=== PATIENT | female | born 1975 ===

== ENCOUNTER 2024-02-01 07:44 | Day surgery (SDC) | payer BC ==
[~2024-02-01] VITALS: Ht 170.2 cm; Wt 95.5 kg
[~2024-02-01 07:44] MED LIST: Lactated Ringer's 1,000 ML IV ONE; OZEMPIC1 MG/0.72 SC; propofoL 50 ML IV ONE
[2024-02-01] MEDS ORDERED: Lactated Ringer's 1,000 ML IV ONE (07:56)
[2024-02-01] MEDS ORDERED: MAGNESIUM OXID500 MG (08:13)
[2024-02-01 09:50] VITALS: BP 101/74
== END 2024-02-01 09:56 | disposition home or self-care (01) ==
LOC: ORSCSDS 07:44
PROVIDERS: Internal Medicine Gastroenterology
PROC: 0DBM8ZX Excision of Descending Colon, Via Natural or Artificial Opening Endoscopic, Diagnostic (ICD-10-PCS; principal; 2024-02-01 09:00)
PROC: 0DBK8ZX Excision of Ascending Colon, Via Natural or Artificial Opening Endoscopic, Diagnostic (ICD-10-PCS; principal; 2024-02-01 09:00)
DX: Z12.11 Encounter for screening for malignant neoplasm of colon (principal); K63.5 Polyp of colon; Z98.84 Bariatric surgery status; G47.33 Obstructive sleep apnea (adult) (pediatric); E78.5 Hyperlipidemia, unspecified; Z79.85 Long-term (current) use of injectable non-insulin antidiabetic drugs
CPT/HCPCS: 88305; J2704; J7120